=== PATIENT | female | born 1990 | race African-American/Black ===

== ENCOUNTER 2017-10-27 15:38 | Observation (INO) | payer SELFPAY ==
[~2017-10-27] VITALS: Ht 165.1 cm; Wt 96.6 kg
[~2017-10-27 15:38] MED LIST: DOCU100C37 PO; FAMO-119 PO; FERR-74 PO; IBUP-1780 PO; ONDA8TAB6 PO; OXYC-471 PO; PREN-48 PO
[2017-10-27 16:41] LABS: BILIRUBIN,URINE NEGATIVE (NEGATIVE); CLARITY,URINE SLIGHTLY CLOUDY; COLOR,URINE YELLOW; GLUCOSE, URINE (UA) NEGATIVE (NEGATIVE); KETONES,URINE 3+ (NEGATIVE); LEUKOCYTE ESTERASE ,URINE NEGATIVE (NEGATIVE); NITRITE,URINE NEGATIVE (NEGATIVE); PH,URINE 7 (5-9); PROTEIN,URINE NEGATIVE (NEGATIVE); UROBILINOGEN,URINE NORMAL (NORMAL)
[2017-10-27 16:49] LABS: BACTERIA,URINE FEW /HPF; RBC,URINE 0-2 /HPF; WBC,URINE RARE /HPF
[2017-10-27] MEDS ORDERED: INFLUENZA TRIvalent 2017-2018 0.5 ML/45 MCG SYR IM ONE (17:00)
--- NOTE | 2017-10-28 14:59 | Physician Query-Final Dx ---
HARPAL MENA 10/28/17 1459: Clinic Account Progress/Dx Physician Query: Please give diagnosis Date of Service MICHELLE SU MD 10/28/17 2104: Clinic Account Progress/Dx DIAGNOSIS: Diagnosis 34 week gestation Leaking fluid- nitrazine negative, rare contractions HARPAL MENA Oct 28, 2017 14:59 MICHELLE SU MD Oct 28, 2017 21:04
== END 2017-10-27 17:20 | disposition home or self-care (01) ==
LOC: LDRP 15:38
PROVIDERS: ADMIT Family Medicine; ATTEND Family Medicine
DX: Z03.71 Encounter for suspected problem with amniotic cavity and membrane ruled out (principal)
CPT/HCPCS: 81000; 87088; 99214

== ENCOUNTER 2017-11-24 05:13 | Inpatient (IN) | payer BC, MEDICAID ==
[~2017-11-24] VITALS: Ht 167.6 cm; Wt 98.0 kg
[~2017-11-24 05:13] MED LIST changes: -FERR-74 PO; +FERR325T18 PO
[2017-11-24 05:21] VITALS: BP 123/76
[2017-11-24] MEDS ORDERED: LACTATED RINGERS 1,000 ML IV ONE (06:45)
[2017-11-24] MEDS ORDERED: INFLUENZA TRIvalent 2017-2018 0.5 ML/45 MCG SYR IM ONE (07:00)
[2017-11-24] MEDS ORDERED: ceFAZolin INJECTION 1,000 MG in NS (IVPB) 50 ML IV ONE (07:45)
[2017-11-24] MEDS: LACTATED RINGERS 1,000 ML IV PRN ×2 (07:53→09:12)
[2017-11-24 07:55] VITALS: BP 106/59
[2017-11-24 08:09] LABS: BASOPHILS # (AUTO) 0.1 10^3/uL (0.0-0.1); BASOPHILS % (AUTO) 0 % (0-10); EOSINOPHILS % (AUTO) 0 % (0-10); HEMATOCRIT 31 % (35-52); HEMOGLOBIN 9.6 G/DL (11.5-16.0); LYMPHOCYTES # (AUTO) 2.5 X 10^3 (1.0-4.0); LYMPHOCYTES % (AUTO) 22 % (12-44); MEAN CORPUSCULAR HEMOGLOBIN 22 PG (25-34); MEAN CORPUSCULAR HGB CONC 31 G/DL (32-36); MEAN CORPUSCULAR VOLUME 70 FL (80-99); MEAN PLATELET VOLUME 9.3 FL (7.4-10.4); MONOCYTES # (AUTO) 0.9 X 10^3 (0.0-1.0); MONOCYTES % (AUTO) 8 % (0-12); NEUTROPHILS # (AUTO) 7.7 X 10^3 (1.8-7.8); NEUTROPHILS % (AUTO) 69 % (42-75); PLATELET COUNT 582 10^3/uL (130-400); RED BLOOD COUNT 4.36 10^6/uL (4.35-5.85); WHITE BLOOD COUNT 11.2 10^3/uL (4.3-11.0)
[2017-11-24] MEDS ORDERED: FAMOTIDINE 20MG/2ML IV (PEPCID) IV ONE (08:15)
[2017-11-24] MEDS ORDERED: CITRIC ACID/SOB CIT (BICITRA) 30 ML UDC PO ONE (08:15)
[2017-11-24] MEDS ORDERED: METOCLOPRAMIDE INJ 10 MG/2 ML (REGLAN) IV ONE (08:15)
[2017-11-24] MEDS ORDERED: TERBUTALINE INJ 1 MG/ML (BRETHINE) AMP ONE (08:15)
--- NOTE | 2017-11-24 08:19 | Progress Note-Pre Operative ---
Pre-Operative Progress Note H&P Reviewed Patient is scheduled for CS on 11/29/17. However, she presented to women's services this morning for labor. CS will be done today. Consents have been signed. She is NPO. Preoperative antibiotics and SCDs ordered. Risks of bleeding, infection, injury to bowel, bladder and ureter explained to patient. Date Seen by Provider: Nov 24, 2017 Time Seen by Provider: 08:10 Date H&P Reviewed: Nov 24, 2017 Time H&P Reviewed: 07:00 Pre-Operative Diagnosis: Previous section in labor JULIO CESAR MANN DO Nov 24, 2017 08:19
[2017-11-24] MEDS ORDERED: TERBUTALINE INJ 1 MG/ML (BRETHINE) AMP SC ONE (08:30)
[2017-11-24] MEDS ORDERED: ONDANSETRON 4 MG/2 ML (SDV) Z0FRAN ONE (09:25)
[2017-11-24] MEDS ORDERED: fentaNYL INJECTION 100 MCG/2 ML AMP ONE (09:25)
[2017-11-24] MEDS ORDERED: OXYTOCIN/NORMAL SALINE 1,000 ML IV ONE (09:25)
[2017-11-24] MEDS ORDERED: PHENYLEPHRINE 100 MCG/ML 10 ML (ANESTHESIA) SYR ONE (10:06)
[2017-11-24] MEDS ORDERED: D5 LR IV SOLUTION 1,000 ML IV SCH (10:27)
[2017-11-24] MEDS ORDERED: OXYTOCIN/NORMAL SALINE 500 ML IV SCH (10:27)
[2017-11-24] MEDS ORDERED: TETANUS,DIPTH,PERTUSS P/F (BOOSTRIX) 0.5 ML VIAL IM SCH (10:30)
[2017-11-24] MEDS: KETOROLAC 30 MG/ML VIAL IVP SCH ×3 (10:30→22:19)
[2017-11-24] MEDS ORDERED: MEASLES,MUMPS,RUBELLA 1 EA INJ SC SCH (10:30)
[2017-11-24] MEDS ORDERED: HYDROmorphone (DILAUDID) 2 MG/ML VIAL IVP PRN (10:30)
--- NOTE | 2017-11-24 10:36 | Cesarean Section Operative ---
Procedure Procedure Note Pre-operative Diagnosis: Gloria Maynard is a 27 /Para 4 / 2, Gestational Age 38 2/7 weeks previous section in labor Post-operative Diagnosis: same Procedure: Repeat low transverse section Physician: JULIO CESAR MANN Estimated blood loss: 650 mL Disposition: stable Findings: Viable male , Apgars 9/9, weight8#9oz, intact placenta, 3vc, normal appearing uterus, tubes, and ovaries. Indications:Gloria Maynard is a 27 /Para 4 / 2,Gestational Age 38 2/ 7 weeks previous section in labor Procedure Details: The patient was scheduled for repeat section on 11/29/17. She instead presented in labor today. She was seen in pre-op and the procedure was discussed with the patient in full, including the risks, benefits, and alternatives. All questions were answered. The patient was taken to the operating room and a time out was performed, verifying patient and procedure. After spinal anesthesia was placed by our anesthesia colleagues, the patient was placed in the dorsal supine with leftward tilt for uterine displacement.~ Her abdomen was then prepped and draped in the typical sterile fashion. A Pfannenstiel skin incision was made using a scalpel and carried down through the underlying fascia. The fascia was incised in the midline and tented up using Ton clamps. On both the inferior and superior fascia side the rectus muscle was dissected off bluntly and sharply using Bianchi scissors. The peritoneum was identified and entered bluntly in the midline. This was then stretched laterally using manual strength. After entering the abdominal cavity and noticing an omental adhesion to the abdominal wall (this) that was cut with cautery, a large Doe retractor was placed and the lower uterine segment was visualized. A scalpel was utilized to make a low transverse uterine incision. Amniotomy was performed with an Allis clamp with return of clear fluid. The infant's head was grasped and brought to the level of the incision. Fundal pressure was applied and infant was delivered without difficulty with assistance of a silastic suction. Mouth and nares were suctioned with bulb suction. After the umbilical cord was clamped and cut, the infant was handed off to the pediatric staff. A sample of cord blood was then obtained. The placenta was delivered intact via uterine massage. The uterus was cleared of all clots and debris. The uterine incision was closed using 0 Vicryl in a running locked fashion. A second imbricated layer was placed using 0 Vicryl in a running fashion as well. The uterus was flexed forward and the posterior rectouterine space was inspected and cleared of all clots and debris. Again the hysterotomy site was examined and hemostasis was observed. The bilateral tubes and ovaries appeared normal. The abdominal gutters were cleared of all clots and debris. A final check of the uterine incision showed it to be hemostatic. The peritoneum was closed using 3-0 Vicryl in a running fashion. The fascia was closed with 0 Vicryl in a running fashion. The subcutaneous space was hemostatic , and irrigated. The subcutaneous space was closed with 3-0 Vicryl in several single interrupted stitches. The skin was then closed using 4-0 Monocryl in a running subcuticular fashion. The skin edges were reapproximated together and were hemostatic. A pressure dressing was applied. All sponge, lap and needle counts were correct at the end of the procedure per nursing. Vitals - Labs Vital Signs - I&O Vital Signs Date Time Temp Pulse Resp B/P (MAP) Pulse Ox O2 Delivery O2 Flow Rate FiO2 11/24/17 09:30 20 Room Air 11/24/17 09:00 20 Room Air 11/24/17 08:30 20 Room Air 11/24/17 07:55 98.6 86 20 106/59 (75) Room Air 11/24/17 06:29 97.4 11/24/17 05:21 99.2 105 18 123/76 (92) Room Air Labs Laboratory Tests 11/24/17 06:50: White Blood Count 11.2H, Red Blood Count 4.36, Hemoglobin 9.6L, Hematocrit 31L, Mean Corpuscular Volume 70L, Mean Corpuscular Hemoglobin 22L, Mean Corpuscular Hemoglobin Concent 31L, Red Cell Distribution Width 16.0H, Platelet Count 582H, Mean Platelet Volume 9.3, Neutrophils (%) (Auto) 69, Lymphocytes (%) (Auto) 22, Monocytes (%) (Auto) 8, Eosinophils (%) (Auto) 0, Basophils (%) (Auto) 0, Neutrophils # (Auto) 7.7, Lymphocytes # (Auto) 2.5, Monocytes # (Auto) 0.9, Eosinophils # (Auto) 0.0, Basophils # (Auto) 0.1 JULIO CESAR MANN DO Nov 24, 2017 10:36
[2017-11-24] MEDS ORDERED: METOCLOPRAMIDE INJ 10 MG/2 ML (REGLAN) IV PRN (10:45)
[2017-11-24] MEDS ORDERED: ONDANSETRON 4 MG/2 ML (SDV) Z0FRAN IV PRN (10:45)
[2017-11-24] MEDS ORDERED: diphenhydrAMINE 50 MG/ML INJ (BENADRYL) IV PRN (10:45)
[2017-11-24] MEDS ORDERED: NALOXONE 0.4 MG/ML 1 ML (NARCAN) VIAL IV PRN ×2 (10:45)
[2017-11-24 13:55] VITALS: BP 101/57
[2017-11-24] MEDS: HYDROcodone/APAP 5 MG/325 MG (LORTAB) TAB PO PRN (14:00)
[2017-11-24] MEDS: CATHETER FLUSH 10 ML SYR IV SCH ×2 (16:36→22:22)
[2017-11-24 20:06] VITALS: BP 107/65
[2017-11-24] MEDS: DOCUSATE SODIUM 100 MG (COLACE) CAP PO SCH (20:06)
[2017-11-25] VITALS (7 sets, daily range): BP systolic 81–124; BP diastolic 53–69
[2017-11-25] MEDS: HYDROcodone/APAP 5 MG/325 MG (LORTAB) TAB PO PRN ×5 (01:12→22:01)
[2017-11-25] MEDS: KETOROLAC 30 MG/ML VIAL IVP SCH (03:57)
[2017-11-25] MEDS: CATHETER FLUSH 10 ML SYR IV SCH (03:58)
[2017-11-25 06:06] LABS: BASOPHILS # (AUTO) 0.1 10^3/uL (0.0-0.1); BASOPHILS % (AUTO) 0 % (0-10); EOSINOPHILS # (AUTO) 0.1 10^3/uL (0.0-0.3); EOSINOPHILS % (AUTO) 1 % (0-10); HEMATOCRIT 28 % (35-52); HEMOGLOBIN 8.6 G/DL (11.5-16.0); LYMPHOCYTES # (AUTO) 2.9 X 10^3 (1.0-4.0); LYMPHOCYTES % (AUTO) 23 % (12-44); MEAN CORPUSCULAR HEMOGLOBIN 22 PG (25-34); MEAN CORPUSCULAR HGB CONC 31 G/DL (32-36); MEAN CORPUSCULAR VOLUME 71 FL (80-99); MEAN PLATELET VOLUME 8.5 FL (7.4-10.4); MONOCYTES # (AUTO) 0.9 X 10^3 (0.0-1.0); MONOCYTES % (AUTO) 7 % (0-12); NEUTROPHILS # (AUTO) 9.1 X 10^3 (1.8-7.8); NEUTROPHILS % (AUTO) 70 % (42-75); PLATELET COUNT 465 10^3/uL (130-400); RED BLOOD COUNT 3.95 10^6/uL (4.35-5.85); RED CELL DISTRIBUTION WIDTH 15.8 % (10.0-14.5)
[2017-11-25] MEDS: DOCUSATE SODIUM 100 MG (COLACE) CAP PO SCH ×2 (08:28→20:27)
--- NOTE | 2017-11-25 09:59 | Postpartum Progress Note ---
Post Op Post-operative Day #1 Subjective: Patient is without complaints. Ambulating, voiding after grover removed. Tolerating a regular diet without nausea or vomiting. Normal lochia. Pain is well controlled with oral pain medications. Passing flatus. Objective: Vital Sign - Last 24 Hours 11/24/17 11/24/17 11/24/17 11/25/17 13:55 16:06 20:06 00:25 Temp 98.1 97.5 98.1 Pulse 74 90 75 Resp 18 18 18 B/P (MAP) 101/57 (72) 107/65 (79) 99/59 (72) Pulse Ox 98 98 98 O2 Delivery Room Air Room Air Room Air Room Air 11/25/17 11/25/17 03:58 08:30 Temp 97.6 97.4 Pulse 76 72 Resp 18 16 B/P (MAP) 124/69 (87) 108/68 (81) Pulse Ox 98 98 O2 Delivery Room Air Room Air Intake and Output 11/24/17 11/24/17 11/25/17 15:00 23:00 07:00 Intake Total 2550 ml 350 ml 2400 ml Output Total 525 ml 300 ml 1200 ml Balance 2025 ml 50 ml 1200 ml Laboratory Tests 11/25/17 06:00: White Blood Count 13.0H, Red Blood Count 3.95L, Hemoglobin 8.6L, Hematocrit 28L , Mean Corpuscular Volume 71L, Mean Corpuscular Hemoglobin 22L, Mean Corpuscular Hemoglobin Concent 31L, Red Cell Distribution Width 15.8H, Platelet Count 465H, Mean Platelet Volume 8.5, Neutrophils (%) (Auto) 70, Lymphocytes (% ) (Auto) 23, Monocytes (%) (Auto) 7, Eosinophils (%) (Auto) 1, Basophils (%) ( Auto) 0, Neutrophils # (Auto) 9.1H, Lymphocytes # (Auto) 2.9, Monocytes # (Auto ) 0.9, Eosinophils # (Auto) 0.1, Basophils # (Auto) 0.1 Physical Exam: General - Alert and oriented, no apparent distress Abdomen - Soft, appropriately tender to palpation, non-distended, fundus firm at umbilicus Incision - clean, dry and intact; no erythema or induration, no drainage Extremities - no edema, negative Shaheen's bilaterally Assessment: Post-operative day # 1, status post LTCS. Recovering well, hemodynamically stable Acute blood loss anemia 8.6 Plan: Routine post-operative care. Encourage breast feeding. Encourage ambulation. VTE prophylaxis: SCDs. Ferrous sulfate supplementation. Plan for discharge tomorrow Vitals - Labs Vital Signs - I&O Vital Signs Date Time Temp Pulse Resp B/P (MAP) Pulse Ox O2 Delivery O2 Flow Rate FiO2 11/25/17 08:30 97.4 72 16 108/68 (81) 98 Room Air 11/25/17 03:58 97.6 76 18 124/69 (87) 98 Room Air 11/25/17 00:25 98.1 75 18 99/59 (72) 98 Room Air 11/24/17 20:06 97.5 90 18 107/65 (79) 98 Room Air 11/24/17 16:06 Room Air 11/24/17 13:55 98.1 74 18 101/57 (72) 98 Room Air I & O 11/25/17 07:00 Intake Total 5300 ml Output Total 2025 ml Balance 3275 ml Labs Laboratory Tests 11/25/17 06:00: White Blood Count 13.0H, Red Blood Count 3.95L, Hemoglobin 8.6L, Hematocrit 28L , Mean Corpuscular Volume 71L, Mean Corpuscular Hemoglobin 22L, Mean Corpuscular Hemoglobin Concent 31L, Red Cell Distribution Width 15.8H, Platelet Count 465H, Mean Platelet Volume 8.5, Neutrophils (%) (Auto) 70, Lymphocytes (% ) (Auto) 23, Monocytes (%) (Auto) 7, Eosinophils (%) (Auto) 1, Basophils (%) ( Auto) 0, Neutrophils # (Auto) 9.1H, Lymphocytes # (Auto) 2.9, Monocytes # (Auto ) 0.9, Eosinophils # (Auto) 0.1, Basophils # (Auto) 0.1 NEFTALI GUILLEN DO Nov 25, 2017 9:59 am
[2017-11-25] MEDS: IBUPROFEN 600 MG (MOTRIN) TAB PO SCH ×2 (11:54→18:17)
[2017-11-25] MEDS ORDERED: FERROUS SULF 325 MG (IRON) TAB PO ONE (11:58)
[2017-11-25] MEDS: FERROUS SULF 325 MG (IRON) TAB PO SCH ×2 (12:04→18:17)
[2017-11-26] MEDS: IBUPROFEN 600 MG (MOTRIN) TAB PO SCH ×2 (00:11→06:36)
[2017-11-26 02:30] VITALS: BP 110/72
[2017-11-26 08:00] VITALS: BP 110/70
[2017-11-26] MEDS: FERROUS SULF 325 MG (IRON) TAB PO SCH (08:05)
[2017-11-26] MEDS: DOCUSATE SODIUM 100 MG (COLACE) CAP PO SCH (08:05)
--- NOTE | 2017-11-26 08:25 | Progress Note-Standard ---
Standard Progress Note Progress Notes/Assess & Plan Date Seen by Provider: Nov 26, 2017 Time Seen by Provider: 08:15 Progress/Assessment & Plan Post-operative Day #2 Subjective: Patient is without complaints. Ambulating, voiding freely. Tolerating a regular diet without nausea or vomiting. Normal lochia. Pain is well controlled with oral pain medications. Passing flatus. Objective: Vital Sign - Last 24 Hours 11/25/17 11/25/17 11/25/17 11/25/17 08:30 12:25 13:15 16:00 Temp 97.4 98.4 99.0 Pulse 72 66 75 Resp 16 20 20 B/P (MAP) 108/68 (81) 81/53 (62) 110/68 (82) 111/64 (80) Pulse Ox 98 97 97 O2 Delivery Room Air Room Air Room Air 11/25/17 11/26/17 11/26/17 22:01 02:30 08:00 Temp 98.6 98.1 98.0 Pulse 91 77 82 Resp 20 20 18 B/P (MAP) 115/68 (84) 110/72 (85) 110/70 (83) Pulse Ox 97 98 99 O2 Delivery Room Air Room Air Room Air Intake and Output 11/25/17 11/25/17 11/26/17 14:59 22:59 06:59 Intake Total 1640 ml 1600 ml Output Total 1325 ml 1000 ml Balance 315 ml 600 ml Physical Exam: General - Alert and oriented, no apparent distress Abdomen - Soft, appropriately tender to palpation, non-distended, fundus firm at umbilicus Incision - clean, dry and intact; no erythema or induration, no drainage Extremities - no edema, negative Shaheen's bilaterally Assessment: Post-operative day # 2, status post LTCS. Recovering well, hemodynamically stable Acute blood loss anemia 8.6 Plan: Routine post-operative care. Encourage breast feeding. Encourage ambulation. VTE prophylaxis: SCDs. Ferrous sulfate supplementation. Plan for discharge today NEFTALI GUILLEN DO Nov 26, 2017 8:25 am
--- NOTE | 2017-11-26 08:26 | Discharge Inst-Women's Service ---
Discharge Inst-Women's Serv Depart Medication/Instructions New, Converted or Re-Newed RX: RX on Chart Consults/Follow Up Additional Follow Up: Yes Orders/Referrals Dr. Rashid in 7-10 days and in 6 weeks Activity Activity: Activity as Tolerated Driving Instructions: No Driving for 1 Week NO SMOKING: NO SMOKING Nothing Inside Vagina: No Douching, No [place], No Tampons Diet Discharge Diet: No Restrictions Symptoms to Report to : Bleeding Excessive, Pain Increased, Fever Over 101 Degrees F, Vaginal Bleeding Increase, Questions/Concerns For Any Problems or Questions: Contact Your Physician Skin/Wound Care Infection Signs and Symptoms: Increased Redness, Foul Odor of Wound, Increased Drainage, Skin Itchy or Has a Rash, Increased Swelling, Temperature Above 101 F Operative Area Clean and Dry: Keep Incision Clean/Dry Stitches/[place]/Dermabond: Dermabond, Care of Stitches Bathing Instructions: NEFTALI Davis DO Nov 26, 2017 8:26 am
[2017-11-26] MEDS ORDERED: IBUP-1773 PO (08:27)
[2017-11-26] MEDS ORDERED: DOCU100C37 PO (08:27)
[2017-11-26] MEDS ORDERED: ACHD5005 PO (08:27)
[2017-11-26] MEDS ORDERED: FERR325T18 PO (08:39)
[2017-11-26 11:50] VITALS: BP 110/70
== END 2017-11-26 11:50 | disposition home or self-care (01) | DRG 765 ==
LOC: WSo 05:13 → LDRP 05:15 → WSo 07:30 → LDRP 07:33
PROVIDERS: ADMIT Obstetrics & Gynecology; ATTEND Obstetrics & Gynecology
PROC: 10D00Z1 Extraction of Products of Conception, Low, Open Approach (ICD-10-PCS; principal; 2017-11-24 09:35)
DX: O34.211 Maternal care for low transverse scar from previous cesarean delivery (principal); O90.81 Anemia of the puerperium; D62 Acute posthemorrhagic anemia; Z37.0 Single live birth; Z3A.38 38 weeks gestation of pregnancy
CPT/HCPCS: 36415; 85025; 86850; 86900; 86901; 86920; 94664; 99212